=== PATIENT | male | born 1935 | race Caucasian/White ===

== ENCOUNTER 2017-03-29 16:05 | Inpatient (IN) | payer MEDICARE, OTHER ==
[~2017-03-29] VITALS: Ht 171.4 cm; Wt 107.1 kg
[2017-03-29] VITALS (10 sets, daily range): BP systolic 163–247; BP diastolic 66–98; PULSE 61–75; RESP 16–20; O2SAT 95–98
--- NOTE | 2017-03-29 16:14 | ED.REPORT ---
HPI-Stroke / CVA Mar 29, 2017 ED Provider: Dr. Abrams Pt is a generally healthy 81 y/o male w/ a hx of HLD, presenting to the ED with his c/o aphasia onset 15:00. The patient was with his watching TV and suddenly developed aphasia described as word finding difficulties. His aphasia has been constant since onset. Pt denies focal weakness/numbness, seizure-like activity, problem walking, SHELTON. There has been no recent major surgeries, head trauma, or falls. The patient had a similar episode in August in [place] at which time he had a full stroke workup and his symptoms were thought to be caused by a TIA. He was discharged on more aspirin and no anticoagulation or antiplatelet drugs. Yesterday he did do more activities than normal. He was recently started on a new statin 1 week ago. Nursing Notes Stated Complaint: STROKE LIKE SYMPTOMS Chief Complaint: Neuro Symptoms/ Deficits Nursing Notes Reviewed: Yes Allergies: Coded Allergies: No Known Drug Allergies (Verified Allergy, Unknown, 03/29/17) Scheduled Aspirin (Aspirin) 81 Mg Tablet 162 MG PO HS (Reported) Atenolol (Atenolol) 50 Mg Tablet 50 MG PO HS (Reported) Cranberry Extract (Cranberry) 500 Mg Tablet 500 MG PO HS (Reported) Finasteride (Finasteride) 5 Mg Tablet 5 MG PO QAM (Reported) Hydrochlorothiazide (Hydrochlorothiazide) 12.5 Mg Tablet 12.5 MG PO QAM ( Reported) Lisinopril (Lisinopril) 20 Mg Tablet 20 MG PO QAM (Reported) Naproxen Sodium (Naproxen Sodium) 220 Mg Capsule 220 MG PO BIDWM (Reported) Pumpkin Seed Extract/Soy Germ (Azo Bladder Control Capsule) 300 Mg Capsule 300 MG PO HS (Reported) Rosuvastatin Calcium (Rosuvastatin Calcium) 10 Mg Tablet 10 MG PO HS (Reported) Saw [place] (Saw Miami) 160 Mg Capsule 320 MG PO HS (Reported) Tamsulosin (Flomax) 0.4 Mg Capsule 0.8 MG PO HS (Reported) General Time Seen by Provider: 16:10 Chief Complaint Other (word finding difficulties) Hx Obtained From: Patient Arrived By: Walk-in Time last known well 15:00 Sudden in Onset?: Yes Symptom Duration: Since onset Progression Since Onset: Constant Severity: Current: No pain currently Severity: Maximum: No pain Recent Healthcare: Previous diagnosis, Prior workup Similar Sx Previous: Yes Risk Factors )( TPA Administration/Criteria Stroke Thrombolytic Therapy : TPA Considered: Yes TPA Administered Intravenously: No, not indicated NIH Stroke Scale Level of Consciousness: Alert and responsive (0) Ask Month & Age: Both questions right (0) Open/Close Eyes/Hand Financial Market Dealer: Performs both tasks (0) Horizontal EO Movements: None (0) Visual Rosen: No visual loss (0) Facial Palsy: Normal symmetry (0) Right Arm Motor Drift (10s): No drift 10 sec (0) Left Arm Motor Drift (10s): No drift 10 sec (0) Right Leg Motor Drift (5s): No drift 5 sec (0) Left Leg Motor Drift (5s): No drift 5 sec (0) Limb Ataxia FNF/Heel-Mcdonald: No ataxia (0) Sensation (Arms/Legs/Face): No sensory loss (0) Language Aphasia: No aphasia, normal (0) Dysarthria: No dysarthria, normal (0) Extinction/Inattention: No exctinct/inattent (0) NIHSS Score: 0 Time NIHSS Performed: 16:22 Date NIHSS Performed: Mar 29, 2017 Past Medical History Past Medical History Hyperlipidemia TIA Past Surgical History None reported Smoking History Unknown if Ever Smoker Social History Other Social History: Ambulatory Status Independent Review of Systems Neurologic: Reports: Slurred speech (word finding difficulties), Denies: Focal weakness, Headache, Problem walking, Seizure, Shaking Complete sys rev & neg: except as marked. Physical Exam Initial Vital Signs Vital Signs (First) Date Time Temp Pulse Resp B/P Pulse Ox O2 Delivery O2 Flow Rate FiO2 03/29/17 16:14 64 20 207/83 95 Room Air Initial VS: Reviewed, Vital signs abnormal ENT: Mucous membranes moist, Conjunctiva normal, No scleral icterus Abdomen / GI: Soft, Non-tender, No guarding, No rebound, No distention Extremities: Vascular intact, Neuro intact, No swelling Skin: Warm, Dry, No cyanosis Psychiatric: Mood/affect normal, Behavior normal, Normal thought content General/Constitutional: Awake, Alert, No acute distress, Well appearing, Cooperative, Not toxic appearing Head / Eyes: Atraumatic, Normocephalic, PERRL, EOMI Neck: Atraumatic, Supple, No meningismus, Full range of motion Respiratory / Chest: Breath sounds NL, Breath sounds = bilat, No respiratory distress, No rales, No rhonchi, No wheezing, No retractions, No stridor Cardiovascular: Heart rate NL, Regular rhythm, Heart sounds NL, No gallop, No murmurs, No rubs, Cap refill not delayed, Peripheral circulation NL Neurologic: Oriented X3, Speech NL, No motor deficits, No sensory deficits, CN II - XII intact, Cerebellar NL, Memory NL No facial droop No word finding difficulty or slurred speech at this time Strength 5/5 bilateral upper and lower extremities No pronator drift Finger to nose normal bilaterally Heel to mcdonald normal bilaterally Interpretation & Diagnostics Lab Results Interpretation Result Diagram: 03/29/17 1630 03/29/17 1630 Test 03/29/17 16:30 03/29/17 16:31 03/29/17 18:59 White Blood Count 7.6th/mm3 (3.8-10.1) Red Blood Count 5.00mil/mm3 (4.40-5.80) Hemoglobin 15.4g/dL (13.8-17.2) Hematocrit 45.4% (41.0-50.0) Mean Corpuscular Volume 90.8fL (81-100) Mean Corpuscular Hemoglobin 30.8pg (27.0-35.0) Mean Corpuscular Hemoglobin Concent 33.9% (32.0-37.0) Red Cell Distribution Width 13.5% (12.3-15.4) Platelet Count 158bil/L (150-400) Neutrophils (%) (Auto) 65.7% (40-74) Lymphocytes (%) (Auto) 21.5% (14-46) Monocytes (%) (Auto) 10.8% (4-12) Eosinophils (%) (Auto) 1.6% (0-5) Basophils (%) (Auto) 0.3% (0-3) Prothrombin Time 10.1sec (8.1-12.5) Prothromb Time International Ratio 0.95ratio Sodium Level 142mEq/L (134-144) Potassium Level 4.0mEq/L (3.5-5.2) Chloride Level 104mEq/L (97-108) Carbon Dioxide Level 22mmol/L (18-29) Blood Urea Nitrogen 24mg/dL (8-27) Creatinine 0.59mg/dL (0.76-1.27) Estimat Glomerular Filtration Rate 140mL/min (>59) Glucose Level 93mg/dL (60-99) Calcium Level 9.1mg/dL (8.5-10.1) Magnesium Level 2.1mg/dL (1.6-2.6) Total Bilirubin 0.5mg/dL (0.0-1.2) Aspartate Amino Transf (AST/SGOT) 16U/L (0-50) Alanine Aminotransferase (ALT/SGPT) 15U/L (0-44) Alkaline Phosphatase 104U/L (25-160) Troponin T < 0.010ug/L (0.0-0.011) Total Protein 6.8g/dL (6.4-8.4) Albumin 4.3g/dL (3.4-5.0) Triglycerides Level 198mg/dL (0-149) Cholesterol Level 153mg/dL (100-199) LDL Cholesterol, Calculated 66.400mg/dL (0-99) VLDL Cholesterol 39.600mg/dL HDL Cholesterol 47mg/dL (>39) Cholesterol/HDL Ratio 3.26 (0.0-4.4) Hold Viveros Top Tube Received (Received) Urine Color Yellow (YELLOW) Urine Appearance Clear (CLEAR,HAZY) Urine pH 7.5 (5.0-8.0) Urine Specific [place] 1.015 (1.003-1.035) Urine Protein Negativemg/dL (NEG,TRACE) Urine Glucose (UA) Negativemg/dL (NEGATIVE) Urine Ketones Negativemg/dL (NEGATIVE) Urine Occult Blood Negative (NEGATIVE) Urine Nitrite Negative (NEGATIVE) Urine Bilirubin Negative (NEGATIVE) Urine Urobilinogen Normalmg/dL (NORMAL) Urine Leukocyte Esterase Trace (NEGATIVE) Urine RBC 0-2/hpf (0-2) Urine WBC 0-5/hpf (0-5) Urine Epithelial Cells Few/hpf (NONE-MOD) Urine Crystals None seen (NONE SEEN) Urine Bacteria Few/hpf (NONE-FEW) Urine Hyaline Casts None/lpf (NONE) Urine Granular Casts None seen (NONE SEEN) Urine Waxy Casts None seen (NONE SEEN) Urine Red Blood Cell Casts None seen (NONE SEEN) Urine White Blood Cell Casts None seen (NONE SEEN) Urine Mucus None seen (None Seen) Urine Trichomonas None seen (NONE SEEN) Urine Yeast None (NONE SEEN) Urinalysis Comment Amorphous sediment Urine Culture Reflexed Indicated ECG Interpretation ECG Interpretation: Sinus rhythm rate [address] segment elevation No T wave abnormalities No prior available for comparison Time: 16:30 Interpreted by: ED physician X-Ray Chest Interpretation Chest Xray Interpretation: IMPRESSION: No acute cardiopulmonary abnormality Dictated by: Fredi Georges M.D. on 03/29/2017 at 16:43 Approved by: Fredi Georges M.D. on 03/29/2017 at 16:44 View: Portable, 1 view Interpretation / Wet Read by: Interpret - Radiologist CT Head Interpretation IMPRESSION: 1. No intracranial hemorrhage. No secondary signs of ischemic infarct. Report called to Dr. Abrams in the ED This study fulfills neurological imaging criteria for inclusion or exclusion of acute stroke therapies based on available published neurological guidelines. Dictated by: Fredi Georges M.D. on 03/29/2017 at 16:37 Approved by: Fredi Georges M.D. on 03/29/2017 at 16:40 Study: Head CT no contrast Interpretation / Wet Read by: Interpret - Radiologist, Discussed w radiologist Re-Eval/Medical Decision Med Decision/Clinical Course Pt is a generally healthy 81 y/o male w/ a hx of HLD, presenting to the ED with his c/o aphasia onset 15:00. The patient was with his watching TV and suddenly developed aphasia described as word finding difficulties. His aphasia has been constant since onset. Pt denies focal weakness/numbness, seizure-like activity, problem walking, SHELTON. There has been no recent major surgeries, head trauma, or falls. The patient had a similar episode in August in [place] at which time he had a full stroke workup and his symptoms were thought to be caused by a TIA. He was discharged on more aspirin and no anticoagulation or antiplatelet drugs. Bedside glucose: 89 Upon arrival in emergency department the patient is afebrile, hemodynamically stable in no apparent distress. Stroke protocol was initiated and he was immediately taken for CT scan. I evaluated the patient immediately on his return from CT scan and by that point his symptoms had completely resolved. His is at the bedside and was able to confirm that he was at his neurologic baseline. He was speaking fluently in full sentences with no lateralizing neurologic findings. CXR: Obtained, reviewed and interpreted by myself shows no evidence of infiltrates, effusions or pneumothorax. Cardiac and mediastinal silhouette normal. No bony or soft tissue abnormalities. Head CT: No acute intracranial process EKG: Sinus rhythm rate [address] segment elevation No T wave abnormalities No prior available for comparison Labs notable as below: CBC: Unremarkable CMP: Unremarkable Coag studies: normal Systolic BP of 239 at 17:30 - given IV Labetalol Thereafter the patient was noted to have ongoing severe hypertension with a blood pressure in the 240s systolic despite receiving IV labetalol. He reported moderate headache though serial neurologic assessments remained nonfocal. Given his severe hypertension he was started on a nicardipine infusion with improvement in his blood pressure to the 170s systolic. The patient was initially considered to be a TPA candidate however he had rapid resolution of his neurologic deficits thereby making him not a TPA candidate. I feel that at this time the patient warrants admission for further stroke/TIA workup and risk stratification. Moreover, his presentation of transient neurologic deficits and headache in the setting of severe hypertension warrants aggressive management of hypertensive emergency. He is currently stable on nicardipine infusion and has been discussed with the admitting hospitalist. He was sent to the intensive care unit for further management. Source of Hx: Family Re-Evaluation/Progress : Time of Eval: 16:24 )( Re-Eval Neurologic Exam: Pt is back to baseline Re-Evaluation/Progress Note: Pt rechecked. Informed pt of need for admission. Pt understands and agrees with plan for admission. All questions addressed. agrees as well. Consultation : Referral / Consult Name: HEDY LUND DO Consulted With: Hospitalist Call Returned at: 17:46 Machine Plug Shaper: Will see patient, Agrees with eval, Agrees with plan, Accepts admit Counseled Regarding: Diagnosis, Lab results, Need for admission Patient Discharge & Departure Impression: Primary Impression: TIA (transient ischemic attack) Transient cerebral ischemia type: unspecified Qualified Code: G45.9 - Transient cerebral ischemic attack, unspecified Additional Impressions: Hypertensive emergency Headache Headache type: unspecified Headache chronicity pattern: unspecified pattern Intractability: not intractable Qualified Code: R51 - Headache Slurred speech History of TIA (transient ischemic attack) Disposition: ADMITTED TO HOSPITAL Discharge Condition All VS Reviewed: Yes Condition: Stable Crit Care Except Billable Proc Time Spent: 105-134 minutes Services Performed: Patient management by me, Time spent at bedside, Reviewing test results, Reviewing imaging, Discussing patient care, Documentation in record, Time with fam/surrogate Critical Care Notes: 90 minutes for consideration of tPA and severe hypertension/hypertensive emergency Scribe Attestation Portions of this note were transcribed by González Garcia. I, Dr. Abrams personally performed the history, physical exam and medical decision-making; I reviewed and confirmed the accuracy of the information in the transcribed note. Akhil Abrams MD Mar 29, 2017 16:13 GONZÁLEZ GARCIA Mar 29, 2017 16:16
[2017-03-29] MEDS ORDERED: Alum-Mag Hydrox-Simeth 30 mL Suspension PO PRN ×2 (16:30→17:15)
[2017-03-29] MEDS ORDERED: Ondansetron 2 mg/mL 2 mL Inj IVPUSH PRN ×3 (16:30→18:05)
[2017-03-29 16:33] LABS: BASOPHILS % (AUTO) 0.3 % (0-3); EOSINOPHILS % (AUTO) 1.6 % (0-5); MONOCYTES % (AUTO) 10.8 % (4-12); Mean Corpuscular Hemoglobin 30.8 pg (27.0-35.0); Mean Corpuscular Volume 90.8 fL (81-100); NEUTROPHILS % (AUTO) 65.7 % (40-74); Platelet Count 158 bil/L (150-400)
--- NOTE | 2017-03-29 16:42 | DRSVH ---
PROCEDURE: CT BRAIN TPA INDICATIONS: cva r/o TECHNIQUE: Noncontrast 4.5 mm thick angled axial sections acquired from the foramen magnum to the vertex, with c oronal reformats. COMPARISON: None. FINDINGS: Image quality: Artifact over the convexities on initial imaging, focal area repeated CSF spaces: Basal cisterns are patent. No extra-axial fluid collections. The ventricles are symmet nate in size and shape. Brain: No intracranial bleeds or masses. There is cerebral volume loss for age, with resultant vent ricular and sulcal prominence. There are periventricular and deep white matter chronic small vessel ischemic changes. There is intracranial internal carotid artery atherosclerosis. Skull and face: Calvarium and visualized facial bones appear intact, without suspicious lesions. Sinuses: Visualized sinuses and mastoids are clear. IMPRESSION: 1. No intracranial hemorrhage. No secondary signs of ischemic infarct. Report called to Dr. Abrams in the ED This study fulfills neurological imaging criteria for inclusion or exclusion of acute stroke therapie s based on available published neurological guidelines. Dictated by: Fredi Georges M.D. on 03/29/2017 at 16:37 Approved by: Fredi Georges M.D. on 03/29/2017 at 16:40
--- NOTE | 2017-03-29 16:45 | DRSVH ---
PROCEDURE: X-RAY CHEST ONE VIEW, PORTABLE ([id number]) INDICATIONS: SHORT OF BREATH TECHNIQUE: One view of the chest was acquired. COMPARISON: None. FINDINGS: Surgical changes and devices: None. Lungs and pleura: No pleural effusions or pneumothorax. Lungs are clear. Biapical pleural thickenin g. Mediastinum: Mediastinal contours appear normal. Heart size is borderline enlarged. Bones and chest wall: No suspicious bony lesions. Overlying soft tissues appear unremarkable. IMPRESSION: No acute cardiopulmonary abnormality Dictated by: Fredi Georges M.D. on 03/29/2017 at 16:43 Approved by: Fredi Georges M.D. on 03/29/2017 at 16:44
[2017-03-29 17:02] LABS: INR 0.95 ratio
[2017-03-29 17:05] LABS: TROPONIN T < 0.010 ug/L (0.0-0.011)
[2017-03-29 17:13] LABS: Magnesium 2.1 mg/dL (1.6-2.6)
[2017-03-29] MEDS ORDERED: Labetalol 5 mg/mL 20 mL Inj IVPUSH PRN (17:15)
[2017-03-29] MEDS ORDERED: hydrALAZINE 20 mg/mL Inj IVPUSH PRN (17:15)
[2017-03-29] MEDS ORDERED: Labetalol 5 mg/mL 20 mL Inj IVPUSH ONE (17:30)
[2017-03-29] MEDS ORDERED: Senna-Docusate 8.6-50 mg Tablet PO PRN (18:05)
[2017-03-29] MEDS: NiCARdipine 25 mg/250 mL D5W IV SCH ×4 (18:10→23:41)
[2017-03-29] MEDS ORDERED: SAW160CA2 PO (18:22)
[2017-03-29] MEDS ORDERED: ROSU10TA24 PO (18:22)
[2017-03-29] MEDS ORDERED: HYDR12.55 PO (18:22)
[2017-03-29] MEDS ORDERED: ASPI-973 PO (18:22)
[2017-03-29] MEDS ORDERED: TAMS0.4C98 PO (18:22)
[2017-03-29] MEDS ORDERED: NAPR220C16 PO (18:22)
[2017-03-29] MEDS ORDERED: FINA5TAB9 PO (18:22)
[2017-03-29] MEDS ORDERED: LISI-567 PO (18:22)
[2017-03-29] MEDS ORDERED: ATEN50TA PO (18:22)
[2017-03-29] MEDS ORDERED: PUMP300C PO (18:23)
[2017-03-29] MEDS ORDERED: CRAN500T2 PO (18:23)
[2017-03-29 19:20] LABS: APPEARANCE,URINE CLEAR (CLEAR,HAZY); COLOR,URINE YELLOW (YELLOW); OCCULT BLOOD,URINE NEGATIVE (NEGATIVE); PH,URINE 7.5 (5.0-8.0); UROBILINOGEN,URINE NORMAL (NORMAL)
--- NOTE | 2017-03-29 21:17 | PCM.HPMED ---
Subjective Date of Service Mar 29, 2017 Primary Provider: Admitting Physician: Primary Care Physician: Attending Physician: Admit Status: From the Emergency Department, Admit to [facility] Team Chief Complaint: Hypertensive emergency History of Present Illness: Mr. Maria is a 81-year-old male with past medical history of hyperlipidemia and TIA who presented to the emergency department in care of his secondary to a aphasia onset this afternoon while watching TV. Patient and states that he was watching TV when he suddenly developed inability to formulate thoughts and coherent sentences. He was reported to have asked his to order things from the TV menu and was slurring his speech. He reports that he thought that he knew what he wanted to say but was unable to find the appropriate words to articulate this. This aphasia has resolved itself by time of interview though did not last for approximately 2-3 hours. She was accompanied with a headache which developed while in route to the emergency room and persist during time of interview (though was somewhat relieved with nicardipine drip). Of note patient had a similar episode in August of this year in [place] with presenting aphasia and had a full stroke workup was diagnosed with a TIA. He was discharged on double dose of aspirin without additional anticoagulation. Since then he has been followed by his primary care Dr. Quintero and has recently increased patient's dose of lisinopril with accompanying atenolol. Stopped hydrochlorothiazide.Discontinued simvastatin and started Crestor. While interviewing patient in ED room blood pressure donna from 212 to approximately 250 systolic which patient states has never been close to that high in the past. Nicardipine drip started in the ED after blood pressure was unable to be controlled with labetalol and patient upgraded from observation to CCU status secondary to high risk medication drip. At time of interview he is completely asymptomatic reports no chest pain, shortness of breath, visual changes, dizziness, abdominal pain or numbness or tingling in extremities. Denies fevers chills nausea vomiting. Patient admitted secondary to TIA/CVA stroke protocol workup. NIH stroke scale in ED 0. Review of Systems: A comprehensive review of systems was conducted with the patient and found to be negative except as above in the history of present illness. Allergies Coded Allergies: No Known Drug Allergies (Verified Allergy, Unknown, 03/29/17) Home Medications Home medications per med rec: Aspirin Atenolol Cranberry extract Finasteride Hydrocort thiazide Lisinopril Naproxen sodium Pumpkin seed extract Rosuvastatin Saw paola Terazosin PMH Hyperlipidemia TIA Hypertension Surgical History Denies Family History Mother passed from heart attack Social History Hx Alcohol Use: No Hx Substance Use: No Hx Tobacco Use: Yes Smoking Status: Unknown if Ever Smoker Living Arrangement: with Family Exam Vital Signs Vital Sign - Last Date Time Temp Pulse Resp B/P Pulse Ox O2 Delivery O2 Flow Rate FiO2 03/29/17 16:44 62 16 211/68 98 Room Air Exam General: Awake and alert sitting up in hospital bed in no acute distress, well- developed, well-nourished, appropriately interactive HEENT: Normocephalic, atraumatic. External ears without defect. Pupils equal, round, and reactive to light and accommodation. Extraocular movements intact Anicteric sclerae, moist conjunctivae, and no lid lag. Oropharynx free of erythema and cobble stoning with moist mucosa. Neck: Supple with full range of motion. No jugular venous distension. No bruits. Cardiovascular: Regular rate and rhythm systolic murmur appreciated Pulmonary: Clear to auscultation bilaterally with no crackles, wheezes, or rhonchi. Normal respiratory effort with no use of accessory muscles. Abdomen: Obese abdomen Bowel tones present. Soft, nontender, nondistended. Extremities: No clubbing, cyanosis, edema, or lymphadenopathy appreciated. Skin: Normal temperature, turgor, and texture Neurological: Cranial nerves grossly intact. Normal muscle strength, tone, and bulk. Reflexes, coordination, and sensory function within normal limits. No pronator drift, strength 5 out of 5 bilaterally upper and lower extremities. Psychiatric: Normal mood and affect. Alert and oriented to person, place, and time. No difficulty speaking, no slurred speech Lab and Diagnostics Result Diagram: 03/29/17 1630 X-Rays, CTs and MRIs . CT BRAIN TPA IMPRESSION: 1. No intracranial hemorrhage. No secondary signs of ischemic infarct. This study fulfills neurological imaging criteria for inclusion or exclusion of acute stroke therapies based on available published neurological guidelines. Dictated by: Fredi Georges M.D. on 03/29/2017 X-RAY CHEST ONE VIEW, PORTABLE IMPRESSION: No acute cardiopulmonary abnormality Dictated by: Fredi Georges M.D. on 03/29/2017 Additional Diagnostics: NIH stroke scale Level of Consciousness: Alert and responsive (0) Ask Month & Age: Both questions right (0) Open/Close Eyes/Hand Box Sorter: Performs both tasks (0) Horizontal EO Movements: None (0) Visual Rosen: No visual loss (0) Facial Palsy: Normal symmetry (0) Right Arm Motor Drift (10s): No drift 10 sec (0) Left Arm Motor Drift (10s): No drift 10 sec (0) Right Leg Motor Drift (5s): No drift 5 sec (0) Left Leg Motor Drift (5s): No drift 5 sec (0) Limb Ataxia FNF/Heel-Mcdonald: No ataxia (0) Sensation (Arms/Legs/Face): No sensory loss (0) Language Aphasia: No aphasia, normal (0) Dysarthria: No dysarthria, normal (0) Extinction/Inattention: No exctinct/inattent (0) NIHSS Score: 0 Assessment & Plan Mr. Maria is a 81-year-old male with past medical history of hyperlipidemia, hypertension and TIA admitted secondary to hypertensive emergency status post suspected TIA. Hypertensive emergency. Present on admission. Ongoing Blood pressure refractory to labetalol demonstration and ED nicardipine drip initiated -Continue nicardipine drip, we will attempt to wean this and replace with lisinopril and atenolol -Telemetry -Continue to monitor TIA. Present on admission. Resolved -Patient asymptomatic at time of interview -MR stroke protocol ordered for a.m. Hyperlipidemia. Present on admission. Ongoing -Statin BPH. Present on admission. Ongoing -Continue home meds Patient Status: Patient was admitted under inpatient status with expected length of stay greater than two midnights due to severity of presenting symptoms , risk of adverse event, and complexity of treatment plan. CODE STATUS patient wishes to remain full code Pain Evaluation: Adequate Pain Control GI Prophylaxis: H2 nick VTE Prophylaxis: Sub-Q Heparin (Unfractionated) Resuscitation Status: CPR: Attempt Resuscitation Time spent 60 minutes Attending Statement Patient (Mr Maria) seen and examined with Dr Alonzo, agree with assessment and plan detailing clinical care. I was involved in all aspects of the care , exam and care plan. He will be treated with a nicardipine drip tonight and antiplatelet therapy as well as close neurologic follow up. HEDY ALONZO DO Mar 29, 2017 17:13 Jose Parson MD Mar 30, 2017 15:32
[2017-03-30] VITALS (10 sets, daily range): BP systolic 146–168; BP diastolic 58–84; PULSE 52–66; RESP 16–18; O2SAT 94–98
[2017-03-30] MEDS: Heparin 5,000 Unit/mL Inj SUBQ SCH ×3 (01:27→16:41)
[2017-03-30] MEDS: NiCARdipine 25 mg/250 mL D5W IV SCH ×12 (03:55→20:33)
[2017-03-30 04:29] LABS: BASOPHILS % (AUTO) 0.3 % (0-3); EOSINOPHILS % (AUTO) 1.4 % (0-5); Mean Corpuscular Hemoglobin 30.5 pg (27.0-35.0); NEUTROPHILS % (AUTO) 67.9 % (40-74); Platelet Count 145 bil/L (150-400)
[2017-03-30] MEDS ORDERED: LORazepam 1 mg Tablet PO PRN (07:00)
[2017-03-30] MEDS ORDERED: Ketorolac 15 mg/mL Inj IVPUSH ONE (11:30)
--- NOTE | 2017-03-30 17:57 | PCM.PNMED ---
Subjective Date of Service Mar 30, 2017 Subjective No overnight event. Vitals stable. This morning however, patient developed sudden expressive aphasia. As team evaluate patient however, symptoms quickly resolved. Event lasted <5min. were no other neurological deficit. Vitals at the time were temperature 36.5, pulse 61, RR 16, BP 160/65, saturating well at 98%. Attempted MR a stroke protocol after pre-medicating patient with 1 mg of Ativan without success. Pt claustrophobic, refuse testing. Patient noted to have similar symptoms in the past, 08/28/2016 down in [place]. At the time MR stroke protocol was also initiated, impression without any acute ischemic infarction. An echocardiogram done at that time also unremarkable, estimated EF of 70-75% with normal ventricular systolic function. On diastolic evaluation, patient has mild concentric LV hypertrophy and impaired relaxation grade 1 diastolic dysfunction. Exam Vital Signs Vital Sign - Last Date Time Temp Pulse Resp B/P Pulse Ox O2 Delivery O2 Flow Rate FiO2 03/30/17 16:44 36.6 59 16 164/84 96 Room Air Exam General: No acute distress, appropriately interactive HEENT: Normocephalic, atraumatic. PERRLA, EOMI, Anicteric sclerae, moist conjunctivae. Neck: No JVD, No bruits. No lymphadenopathy or thyromegaly. Cardiovascular: Regular rate and rhythm with no murmurs, rubs, or gallops appreciated Pulmonary: b/l air sound with no crackles, wheezes, or rhonchi. no use of accessory muscles. Abdomen: +Bowel sound, Soft, nontender, nondistended. Extremities: No clubbing or cyanosis, no lymphedema, no b/l lower leg edema Skin: Normal temperature, turgor, and texture; no rash. No visualized skin ulcer. Neurological: CN II-VII grossly intact, moving equally on all 4 extremities Psychiatric: Normal mood and affect. AOx3 Lab and Diagnostics Result Diagram: 03/30/1741903/30/17419 X-Rays, CTs and MRIs . CT BRAIN TPA IMPRESSION: 1. No intracranial hemorrhage. No secondary signs of ischemic infarct. This study fulfills neurological imaging criteria for inclusion or exclusion of acute stroke therapies based on available published neurological guidelines. Dictated by: Fredi Georges M.D. on 03/29/2017 X-RAY CHEST ONE VIEW, PORTABLE IMPRESSION: No acute cardiopulmonary abnormality Dictated by: Fredi Georges M.D. on 03/29/2017 12-lead ECG MR angiography head: Impression no acute ischemic infarct or other acute intracranial abnormality identified 2. Mildly generalized brain volume loss and small scattered foci of signal abnormality in the cerebral white matter, most consistent with chronic small vessel ischemic changes. 3. Arthrosclerotic irregularities in the intracranial internal carotid arteries , right middle cerebral arteries, and bilateral posterior cerebella arteries are normal in caliber, normal occlusion, or significant stenosis. 4. The may be moderate narrowing of the cervical left ICA, just distal to the carotid bulb. Otherwise normal MR angiography of the neck. Reading Dr.: Scar Bearden. 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 Maria is a 81-year-old male with past medical history of hyperlipidemia, hypertension and TIA admitted secondary to hypertensive emergency status post suspected TIA. Hypertensive emergency. Present on admission. Ongoing -Blood pressure refractory to labetalol demonstration and ED nicardipine drip initiated -Cont home lisinopril and atenolol. d/c nicardipine drip -Telemetry. SBP 130-140 mmhg -Continue to monitor TIA. Present on admission. Resolved -Patient asymptomatic at time of interview -no carotid stenosis on MRA and echocardiogram showing normal LV function, EF 70 -75% with mild concentric hypertrophy impared relaxation (Diastolic Grade I) -given the isolated nature of expressive aphagia without any other focal findings. less likely embolic stroke -awaits Echo reading. holding off MRA for now. -consider neurology consultation in the am Hyperlipidemia. Present on admission. Ongoing -Statin BPH. Present on admission. Ongoing -Continue home meds Patient Status: Patient was admitted under inpatient status with expected length of stay greater than two midnights due to severity of presenting symptoms , risk of adverse event, and complexity of treatment plan. Disposition: GI Prophylaxis: H2 nick VTE Prophylaxis: Sub-Q Heparin (Unfractionated) VTE Mechanical Devices: Intermittant Pneumatic CD Resuscitation Status: CPR: Attempt Resuscitation Attending Statement I interviewed and examined the patient on rounds today. Patient was seen subsequently for acute symptoms. Unable to tolerate full workup. Symptoms seem to be recurrent and similar to prior workup in [place]. I agree with the assessment and plan as stated above. Jose Jaramillo DO Mar 30, 2017 17:57 Nii Byrd MD Mar 31, 2017 07:12 Hyperlipidemia. Present on admission. Ongoing -Statin BPH. Present on admission. Ongoing -Continue home meds Patient Status: Patient was admitted under inpatient status with expected length of stay greater than two midnights due to severity of presenting symptoms , risk of adverse event, and complexity of treatment plan. Disposition: GI Prophylaxis: H2 nick VTE Prophylaxis: Sub-Q Heparin (Unfractionated) VTE Mechanical Devices: Intermittant Pneumatic CD Resuscitation Status: CPR: Attempt Resuscitation Jose Jaramillo DO Mar 30, 2017 17:57
[2017-03-31] VITALS (8 sets, daily range): BP systolic 132–213; BP diastolic 63–81; PULSE 50–67; RESP 16–20; O2SAT 95–96
[2017-03-31] MEDS: Heparin 5,000 Unit/mL Inj SUBQ SCH ×3 (01:52→17:15)
[2017-03-31] MEDS: NiCARdipine 25 mg/250 mL D5W IV SCH ×2 (03:28)
[2017-03-31] MEDS ORDERED: ASPI-973 PO (10:38)
[2017-03-31] MEDS ORDERED: CLOP75TA28 PO (10:38)
[2017-03-31] MEDS ORDERED: HYDR12.55 PO (10:40)
--- NOTE | 2017-03-31 10:57 | PCM.DIMED ---
Discharge Instructions Date of Service Mar 31, 2017 Dates of Hospitalization Mar 29, 2017 at 19:15 Discharge Diagnosis Discharge Diagnosis Hypertensive emergency. Present on admission. resolved TIA. Present on admission. Resolved Hyperlipidemia. Present on admission. Ongoing BPH. Present on admission. Ongoing Medication Instructions Additional med instructions We are giving her 2 medications to help with your TIA. Take Plavix 75 mg 1 tablet daily. You need to take this medication for 3 months. Take aspirin 162 mg qd For your hypertension: Take atenolol 50 mg daily Take lisinopril 20 mg daily Additionally, take hydrochlorothiazide 12.5 mg daily I have renewed these medications for 1 month. You will need to visit your PCP to continue these medication medication. Continue with all other home medication Diet Discharge Diet: No restrictions Activity Discharge Activity: No restrictions Call your provider Call your provider for: Bleeding, Chest pain, Weakness (unilateral) Patient Instructions Follow-up plan You were admitted for hypertensive emergency. This is means that you have dangerously high blood pressure with signs of organ damage, mainly your headaches and also the word searching, word salad. This was pressure has come down significantly with improvement of her symptoms. Workup on this exam included an echocardiogram which was unremarkable. Interpretation summary of your echocardiogram on 03/30/2017 The left ventricle is normal in size. Left ventricular systolic function is normal without focal wall motion abnormalities. Ejection fraction is estimated to be 60-65%. Diastolic function could not be accurately assessed due to contradictory data. The right ventricle is normal in size, thickness, and function. The right the right ventricular systolic pressure is estimated at 31 mmHg assuming a right atrial pressure of 3 mmHg. The left atrium is moderately dilated. The right atrium is normal in size. There are no significant valvular heart disease. The aortic root is mildly dilated. There is no obvious cardiac sources of embolus noted on this transthoracic echocardiogram. Follow-up with a [facility] is suggested if cardiac source is still suspected. Read by Dr. Felipe Wright. Prevention is cisse. 2 blood thinner medication has been prescribed to you. Aspirin and Plavix. Please take this daily without fail. Additionally, please take atenolol, lisinopril, and hydrochlorothiazide as prescribed above to control your hypertension. Please call your primary care provider to schedule a hospital follow-up exam within 1 week. It is also recommended that you see a neurologist to further assess your probable TIA. Call 911 for any of the following: You have any of the following signs of a stroke: Numbness or drooping on one side of your face Weakness in an arm or leg Confusion or difficulty speaking Dizziness, a severe headache, or vision loss Seek care immediately if: You have double vision or vision loss. You have a severe headache or feel dizzy. You are bleeding from your rectum or nose. Contact your healthcare provider or neurologist if: Your blood pressure is higher or lower than you were told it should be. You have questions or concerns about your condition or care. Medicines: Antiplatelets prevent blood clots from forming. Aspirin is an antiplatelet. Do not take aspirin with acetaminophen or ibuprofen. Call you PCP should you have nosebleed or black tarry stools. Know the FAST test to recognize the signs of a stroke: F = Face: Ask the person to smile. Drooping on 1 side of the mouth or face is a sign of a stroke. A = Arms: Ask the person to raise both arms. One arm that slowly comes back down or cannot be raised is a sign of a stroke. S = Speech: Ask the person to repeat a simple sentence that you say first. Speech that is slurred or sounds strange is a sign of a stroke. T = Time: Call 911 if you see any of these signs. This is an emergency. Follow-up with PCP in: 1 week Jose Jaramillo DO Mar 31, 2017 10:57
--- NOTE | 2017-03-31 11:33 | DRSVH ---
[facility] [address] [place] [address] Echocardiogram Report Name: PARESH OLIVEROS GStudy Date : 03/30/2017 Height: 68 in Hospital Exam Location: [facility] Weight: 239 lb Gender: Male BSA: 2.2 m2 : 1935 Age: 81 yrs BP: 166/68 mmHg Reason For Study: TIA Ordering Physician: HOSPITALIST [facility] Performed By: Mica Willams Referring Physician: HEDY LUND Interpretation Summary The left ventricle is normal in size. Left ventricular systolic function is normal without focal wall motion abnormalities. The ejection fraction is estimated to be 60-65%. Diastolic function could not be accurately assessed due to contradictory data. The right ventricle is normal in size, thickness and function. The right ventricular systolic pressure is estimated at 31 mmHg assuming a right atrial pressure of 3 mm Hg. The left atrium is moderately dilated. The right atrium is normal in size. There is no significant valvular heart disease. The aortic root is mildly dilated. There is no obvious cardiac source of embolus noted on this transthoracic echocardiogram. Follow-up with a [facility] is suggested if cardiac source is still suspected. Procedure: A two-dimensional transthoracic echocardiogram with color flow and Doppler was performed. The study quality was technically adequate. There is no prior echocardiogram noted for this patient. The patient was in normal sinus rhythm during the exam. Left Ventricle: The left ventricle is normal in size. There is mild asymmetric left ventricular hypertrophy. Left ventricular systolic function is normal without focal wall motion abnormalities. The ejection fraction is estimated to be 60-65%. Diastolic function could not be accurately assessed due to contradictory data. Right Ventricle: The right ventricle is normal in size, thickness and function. Atria: The left atrium is moderately dilated. The right atrium is normal in size. There is no Doppler evidence for an interatrial shunt. Mitral Valve: The mitral valve leaflets appear thickened, but open well. There is mild mitral annular calcification. There is trace mitral regurgitation. Aortic Valve: The aortic valve is trileaflet. The aortic valve opens well. The aortic valve is moderately calcified. No aortic regurgitation is present. Tricuspid Valve: The tricuspid valve is normal in structure and function. There is trace tricuspid regurgitation. The right ventricular systolic pressure is estimated at 31 mmHg assuming a right atrial pressure of 3 mm Hg. Pulmonic Valve: The pulmonic valve is not well seen, but is grossly normal. There is trace pulmonic regurgitation. There is no significant valvular heart disease. Great Vessels: The aortic root is mildly dilated. The ascending aorta is normal in size. The pulmonary artery is normal size. The IVC is of normal diameter and collapses greater than 50% with a sniff. This suggests a low right atrial pressure of 3 mm Hg. Pericardium/ Pleura There is no pericardial effusion. There is no pleural effusion. MMode/2D Measurements & Calculations LVIDd: 4.8 cm RA long axis LVOT diam LVIDs: 2.9 cm LA A2 area: 22.9 cm FS: 39.5 % LA A4 area: 29.9 cm RA area AoV Opening EPSS: 0.05 cm LA length (vol): 6.1 cm IVSd: 1.3 cm LA vol: 95.7 ml : 20.2 cm Ao root diam LVPWd: 0.95 cm LA vol index RA vol : 62.7 ml asc Aorta RA Diam: 3.1 cm IVC diam: 1.7 cm : 28.4 mm2 LV heath. diameter/BSA LV sys. diameter/BSA TAPSE: 2.7 cm (cm/m^2): 2.2 (cm/m^2): 1.3 Doppler Measurements & Calculations Ao V2 max MV E max nick MV E/A: 0.67 TR max nick : 165.5 cm/sec : 100.9 cm/sec Med Peak E' Nick : 262.1 cm/sec Ao max PG MV A max nick TR max PG : 11.0 mmHg : 150.2 cm/sec E/E' med: 19.8 : 27.5 mmHg Ao mean PG MV P1/2t: 78.6 msec Lat Peak E' Nick PA V2 max : 6.5 mmHg : 99.5 cm/sec E/E' lat: 21.6 PA mean PG E/e' average: 20.7 : 2.3 mmHg MV dec time MV P1/2t max nick Ao V2 mean PA V2 mean : 0.27 sec : 122.9 cm/sec : 72.7 cm/sec MVA(P1/2t): 2.8 cm2 Ao V2 VTI: 36.8 cm Reading Physician:JIMMY
[2017-03-31] MEDS ORDERED: Enalaprilat 1.25 mg/mL 2 mL Inj IVPUSH ONE (15:00)
--- NOTE | 2017-03-31 15:20 | PCM.PNMED ---
Subjective Date of Service Mar 31, 2017 Subjective Patient without neurological complaints overning, BP stable 150's. This is his baseline per patient and . States headaches has improved since admission. No unilateral weakness, numbness. Pending discharge however, vitals BP 199/73 with transient expressive aphasia last <5min. No other neurological deficits noted. Discharge canceled. Exam Vital Signs Vital Sign - Last Date Time Temp Pulse Resp B/P Pulse Ox O2 Delivery O2 Flow Rate FiO2 03/31/17 13:29 59 199/73 03/31/17 10:51 Room Air 03/31/17 08:47 36.3 16 95 Intake and Output 03/30/17 03/30/17 03/31/17 Cumulative From/Thru 15:01 23:01 07:01 03/29/17 16:14 - 03/31/17 06:25 Intake Total 230 ml 420 ml 650 ml Output Total 1600 ml 1600 ml Balance -1370 ml 420 ml -950 ml Intake Oral 420 ml 420 ml IV Total 230 ml 230 ml Output Urine Total 1600 ml 1600 ml # Voids 1 1 # Bowel Movements 0 1 1 Exam General: No acute distress, appropriately interactive HEENT: Normocephalic, atraumatic. PERRLA, EOMI, Anicteric sclerae, moist conjunctivae. Neck: No JVD, No bruits. No lymphadenopathy or thyromegaly. Cardiovascular: Regular rate and rhythm with no murmurs, rubs, or gallops appreciated Pulmonary: b/l air sound with no crackles, wheezes, or rhonchi. no use of accessory muscles. Abdomen: +Bowel sound, Soft, nontender, nondistended. Extremities: No clubbing or cyanosis, no lymphedema, no b/l lower leg edema Skin: Normal temperature, turgor, and texture; no rash. No visualized skin ulcer. Neurological: CN II-VII grossly intact, moving equally on all 4 extremities, no focal deficits noted Psychiatric: Normal mood and affect. AOx3 Lab and Diagnostics Result Diagram: 03/30/17 0420 03/31/17 0235 X-Rays, CTs and MRIs . CT BRAIN TPA IMPRESSION: 1. No intracranial hemorrhage. No secondary signs of ischemic infarct. This study fulfills neurological imaging criteria for inclusion or exclusion of acute stroke therapies based on available published neurological guidelines. Dictated by: Fredi Georges M.D. on 03/29/2017 X-RAY CHEST ONE VIEW, PORTABLE IMPRESSION: No acute cardiopulmonary abnormality Dictated by: Fredi Georges M.D. on 03/29/2017 12-lead ECG MR angiography head: Impression no acute ischemic infarct or other acute intracranial abnormality identified 2. Mildly generalized brain volume loss and small scattered foci of signal abnormality in the cerebral white matter, most consistent with chronic small vessel ischemic changes. 3. Arthrosclerotic irregularities in the intracranial internal carotid arteries , right middle cerebral arteries, and bilateral posterior cerebella arteries are normal in caliber, normal occlusion, or significant stenosis. 4. The may be moderate narrowing of the cervical left ICA, just distal to the carotid bulb. Otherwise normal MR angiography of the neck. Reading Dr.: Scar Bearden. 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 Maria is a 81-year-old male with past medical history of hyperlipidemia, hypertension and TIA admitted secondary to hypertensive emergency status post suspected TIA. Hypertensive emergency. Present on admission. Ongoing -Initial presentation with headaches and expressive aphasia -nicardipine drip initiated with good effects and d/c after 12h. BP refractory to labetalol in the ED -start patient on metopolol 12.5mg BID, lisinopril 20mg BID augment with HCTz 12.5mg daily -Goal SBP 145-155mmHg till am Expressive aphasia, present on admission, stable -sx lasting <5min, witness by staff 2x, initial CT negative, peculiar, he has no other neurologic findings. Echo unremarkable. patient unable to tolerate MRA -similar presentation back in 08/2016 in [place]. MRA without carotid plaques, unremarkable overall, -possible 2nd to hi BP, although cannot exclude other possibility including small plaques. -Neurology consultation Hyperlipidemia. Present on admission. Ongoing -Statin BPH. Present on admission. Ongoing -Continue home meds Patient Status: Patient was admitted under inpatient status with expected length of stay greater than two midnights due to severity of presenting symptoms , risk of adverse event, and complexity of treatment plan. Disposition: GI Prophylaxis: H2 nick VTE Prophylaxis: Sub-Q Heparin (Unfractionated) VTE Mechanical Devices: Intermittant Pneumatic CD Resuscitation Status: CPR: Attempt Resuscitation Time spent 60 minutes Attending Statement I interviewed and examined the patient on rounds today. He is experiencing recurring episodes of isolated expressive aphasia, as well as episodic severe hypertension. Unclear whether anxiety about his aphasia is causing blood pressure to rise or vice versa. I agree with the assessment and plan as stated above. Jose Jaramillo DO Mar 31, 2017 15:20 Nii Byrd MD Mar 31, 2017 17:32
--- NOTE | 2017-03-31 19:32 | PCM.CHPMED ---
Subjective Date of Service: Mar 31, 2017 Provider requesting consult: Nii Byrd MD Primary Physician: Admitting Physician: Jose Parson MD Primary Care Physician: Lilliana Quintero MD Attending Physician: Nii Byrd MD Chief Complaint: Chief Complaint: NEUROLOGY CONSULTATION Recurrent aphasia. History of Present Illness: Servando Maria is an 81-year-old man with past medical history significant for hypertension and hyperlipidemia with prior diagnosis of TIA who presented to [facility] records department 2 days ago due to an episode of aphasia lasting 5-6 minutes. Neurology consultation is being obtained due to recurrent episodes of aphasia. He states that approximately 25 years ago he had a transient episode of aphasia that lasted about 5 minutes where he had slurring of speech. She had an episode in August where he had again 5-6 minutes of transient aphasia although this was coupled with a tingling sensation over his entire body. This was worked up by an MRA which showed no acute ischemic infarct but did show mild generalized brain volume loss with chronic small vessel ischemic changes as well as atherosclerotic irregularities of the intracranial internal carotid arteries, right middle cerebral artery and bilateral posterior cerebral arteries. He was initiated on aspirin after his first "TIA." On presentation patient was noted to have blood pressure of 241/93 and his symptoms were attributed to hypertensive emergency. His blood pressure was treated however the patient again had 3 recurrent episodes of expressive aphasia lasting 5-6 minutes. Patient denied any tonic-clonic movements, oral, postictal phenomenon. These episodes was witnessed by Dr. Byrd who described slurring of the patient's words that resolved shortly. Review of Systems: Comprehensive review of systems was performed and is negative except as noted above in history of present illness. PMH Past Medical History Hyperlipidemia TIA Hypertension Bedside Blood Glucose: 89 Surgical History Denies Home Medications Aspirin Atenolol Cranberry extract Finasteride Hydrocort thiazide Lisinopril Naproxen sodium Pumpkin seed extract Rosuvastatin Saw palmetto Terazosin Allergies: Coded Allergies: No Known Drug Allergies (Verified Allergy, Unknown, 03/29/17) Family History Family History Mother passed from heart attack Social History Hx Alcohol Use: NoHx Substance Use: NoHx Tobacco Use: Yes Smoking Status: Unknown if Ever Smoker Living Arrangement: with Family Exam Vital Signs Vital Sign - Last Date Time Temp Pulse Resp B/P Pulse Ox O2 Delivery O2 Flow Rate FiO2 03/31/17 17:18 59 213/81 03/31/17 10:51 Room Air 03/31/17 08:47 36.3 16 95 Intake and Output 03/30/17 03/30/17 03/31/17 Cumulative From/Thru 15:00 23:00 07:00 03/29/17 16:14 - 03/31/17 06:25 Intake Total 230 ml 420 ml 650 ml Output Total 1600 ml 1600 ml Balance -1370 ml 420 ml -950 ml Intake Oral 420 ml 420 ml IV Total 230 ml 230 ml Output Urine Total 1600 ml 1600 ml # Voids 1 1 # Bowel Movements 0 1 1 General: Alert, Oriented X3, Cooperative Head: Normal Eyes: PERRLA, EOMI, Scleral Anicteric Abdomen: Obese Extremities: No cyanosis/clubbing/edma bilat Neurological: Grossly Neurologically Intact, Cranial Nerves 2-12 Intact, Normal Speech, Strength Normal 4/4 ext, Normal Gait, Sensation Intact, Cerebellar Function nl Finger-Nose, Reflexes Normal, Babinski Reflex Normal Lab and Diagnostics Result Diagram: 03/30/17 0420 03/31/17 0235 X-Rays, CTs and MRIs CT BRAIN TPA IMPRESSION: 1. No intracranial hemorrhage. No secondary signs of ischemic infarct. Report called to Dr. Abrams in the ED This study fulfills neurological imaging criteria for inclusion or exclusion of acute stroke therapies based on available published neurological guidelines. Dictated by: Fredi Georges M.D. on 03/29/2017 at 16:37 Assessment & Plan Assessment Servando Maria is an 81-year-old man with past medical history significant for hypertension and hyperlipidemia with prior diagnosis of TIA who presented to [facility] records department 2 days ago due to an episode of aphasia lasting 5-6 minutes. Neurology consultation is being obtained due to recurrent episodes of aphasia. Recurrent expressive aphasia -The patient's stereotyped neurological presentation is suggestive of epilepsy -EEG tomorrow AM -Unlikely to be due to TIAs as with the frequency of episodes the patient would have likely suffered a full stroke at this point. -Patient's MRA from August does show some chronic changes in the internal carotids, right middle cerebral artery, bilateral posterior cerebral arteries although it does not actually specify the percentage was observed. -Patient is close to phobic and refuses to do an MRI/MRA we will obtain a CT angiogram of the brain to evaluate for intracranial stenosis. -Suggest initiating Plavix in addition to continuation of aspirin if however a CT angio shows that the stenosis is less than 50% could consider not continue with Plavix Thank you for allowing us to participate in the care of this patient. Problems: Pain Evaluation: Adequate Pain Control GI Prophylaxis: H2 nick VTE Prophylaxis: Sub-Q Heparin (Unfractionated) VTE Mechanical Devices: Intermittant Pneumatic CD Resuscitation Status: CPR: Attempt Resuscitation Marry Zee DO Mar 31, 2017 18:41
[2017-04-01] MEDS: Heparin 5,000 Unit/mL Inj SUBQ SCH ×2 (00:57→08:31)
[2017-04-01 03:04] VITALS: PULSE 49
[2017-04-01 04:03] VITALS: BP 141/60; PULSE 55; RESP 20; O2SAT 95
[2017-04-01 08:00] VITALS: PULSE 58
[2017-04-01 08:24] VITALS: BP 159/71; PULSE 53; RESP 16; O2SAT 96
[2017-04-01 12:10] VITALS: BP 163/66; PULSE 63; RESP 20; O2SAT 97
[2017-04-01] MEDS ORDERED: ASPI-973 PO (15:15)
[2017-04-01] MEDS ORDERED: AMLO5TAB2 PO (15:15)
--- NOTE | 2017-04-01 15:20 | PCM.DIMED ---
Jose Jaramillo H DO 04/01/17 1520: Discharge Instructions Date of Service Apr 01, 2017 Dates of Hospitalization Mar 29, 2017 at 19:15 Discharge Diagnosis Discharge Diagnosis Hypertensive emergency. Present on admission. resolved TIA. Present on admission. Resolved Hyperlipidemia. Present on admission. Ongoing BPH. Present on admission. Ongoing Medication Instructions Additional med instructions We are giving her 2 medications to help with your TIA. Take Plavix 75 mg 1 tablet daily. Take aspirin 81mg mg daily For your hypertension: Take amlodipine 5mg daily Take lisinopril 20 mg twice daily Additionally, take hydrochlorothiazide 12.5 mg daily STOP taking you atenolol Blood pressure goals Systolic blood pressure 140-160mmHg I have renewed these medications for 2wk. You will need to visit your PCP to continue these medication medication. Continue with all other home medication Diet Discharge Diet: No restrictions Activity Discharge Activity: No restrictions Call your provider Call your provider for: Bleeding, Chest pain, Weakness (unilateral) Patient Instructions Follow-up plan You were admitted for hypertensive emergency. This is means that you have dangerously high blood pressure with signs of organ damage, mainly your headaches and also the word searching, word salad. This was pressure has come down significantly with improvement of her symptoms. Workup on this exam included an echocardiogram which was unremarkable. Interpretation summary of your echocardiogram on 03/30/2017 The left ventricle is normal in size. Left ventricular systolic function is normal without focal wall motion abnormalities. Ejection fraction is estimated to be 60-65%. Diastolic function could not be accurately assessed due to contradictory data. The right ventricle is normal in size, thickness, and function. The right the right ventricular systolic pressure is estimated at 31 mmHg assuming a right atrial pressure of 3 mmHg. The left atrium is moderately dilated. The right atrium is normal in size. There are no significant valvular heart disease. The aortic root is mildly dilated. There is no obvious cardiac sources of embolus noted on this transthoracic echocardiogram. Follow-up with a [facility] is suggested if cardiac source is still suspected. Read by Dr. Felipe Wright. Prevention is cisse. 2 blood thinner medication has been prescribed to you. Aspirin and Plavix. Please take this daily without fail. Additionally, please take atenolol, lisinopril, and hydrochlorothiazide as prescribed above to control your hypertension. Please call your primary care provider to schedule a hospital follow-up exam within 1 week. It is also recommended that you call to make appt with Neurologist Dr. Conroy at [facility] to follow your TIA Call 911 for any of the following: You have any of the following signs of a stroke: Numbness or drooping on one side of your face Weakness in an arm or leg Confusion or difficulty speaking Dizziness, a severe headache, or vision loss Seek care immediately if: You have double vision or vision loss. You have a severe headache or feel dizzy. You are bleeding from your rectum or nose. Contact your healthcare provider or neurologist if: Your blood pressure is higher or lower than you were told it should be. You have questions or concerns about your condition or care. Medicines: Antiplatelets prevent blood clots from forming. Aspirin is an antiplatelet. Do not take aspirin with acetaminophen or ibuprofen. Call you PCP should you have nosebleed or black tarry stools. Know the FAST test to recognize the signs of a stroke: F = Face: Ask the person to smile. Drooping on 1 side of the mouth or face is a sign of a stroke. A = Arms: Ask the person to raise both arms. One arm that slowly comes back down or cannot be raised is a sign of a stroke. S = Speech: Ask the person to repeat a simple sentence that you say first. Speech that is slurred or sounds strange is a sign of a stroke. T = Time: Call 911 if you see any of these signs. This is an emergency. Follow-up with PCP in: 1 week Nii Byrd MD 04/01/17 0616: Discharge Instructions Attending's Statement I interviewed and examined the patient on rounds today. I agree with the plan as stated above. Jose Jaramillo DO Apr 01, 2017 15:20 Nii Byrd MD Apr 01, 2017 18:36
--- NOTE | 2017-04-01 16:20 | DRSVH ---
PROCEDURE: CT ANGIO HEAD AND NECK (P) INDICATIONS: INTRACRANIAL STENOSIS? TECHNIQUE: Pre-contrast 4.5 mm thick sections acquired from the foramen magnum to the vertex. After the adminis tration of intravenous contrast, 1 mm thick sections acquired from the aortic arch through the [place]. Post-contrast 4.5 mm thick sections then re-acquired from the foramen magnum to the vert ex. 3-dimensional veogieg-cxdvmmtop-fpjlfvytsr (MIP) and/or volume rendering reformats were acquired of the central intracranial vasculature and neck separately. For radiation dose reduction, the foll owing was used: automated exposure control, adjustment of mA and/or kV according to patient size. COMPARISON: [facility], CT, CT BRAIN TPA, 03/29/2017, 16:14. FINDINGS: Image quality: Excellent. BRAIN: The ventricular system and cortical sulci demonstrate atrophy, consistent for the patient's stated ag e. There are areas of hypodensity within the periventricular and subcortical white matter. There is no acute intra-or extra axial fluid collection. No acute hemorrhage, mass lesion or midline shift. Br ainstem is unremarkable. Globes are symmetrical. Sinuses are aerated. Osseous structures are intact. HEAD CT ANGIOGRAPHY: The posterior circulation demonstrates a vertebral artery codominance. Basilar artery and posterior c erebral arteries demonstrate no areas of hemodynamically significant stenosis, vascular occlusion or aneurysmal dilation. Posterior communicating arteries are within normal limits. The anterior circulation, including the anterior and middle cerebral arteries demonstrates no areas o f hemodynamically significant stenosis, vascular occlusion or aneurysmal dilation. There is moderate to high-grade stenosis of the left supraclinoid portion of the internal carotid artery. Mild stenosis is present within this portion of the internal carotid artery on the right. NECK CT ANGIOGRAPHY: The origins of the left and right common and external carotid arteries demonstrate no areas of hemody namically significant stenosis, vascular occlusion or aneurysmal dilation. Prominent calcification is noted at the origin of the left internal carotid artery with stenosis measuring approximately 50-60% . A similar, although more prominent appearance is noted on the right with stenosis approaching 60-70 %. Origins of the left vertebral artery demonstrates no areas of hemodynamically significant stenosis , vascular occlusion or aneurysmal dilation. There is calcification identified at the origin of the r ight vertebral artery with at least 60% stenosis. Aortic arch demonstrates bovine anatomy, consistent with congenital variation. Limited, visualized portions subclavian vasculature are unremarkable. Low attenuation focus is present within the left thyroid lobe. No priors are available for comparison . IMPRESSION: 1. No acute intracranial process. 2. Moderate atrophy and chronic microvascular ischemic changes. 3. Anterior circulation demonstrates prominent stenosis of the supraclinoid internal carotid artery, considered moderate to high-grade on the left. 4. Approximate 60% stenosis at the origin of the right vertebral artery is present. 5. Low attenuation focus within the left thyroid lobe without priors available for comparison. Thyroi d ultrasound is recommended for additional evaluation as indicated. Dictated by: Jessica Hay M.D. on 04/01/2017 at 16:01 Approved by: Jessica Hay M.D. on 04/01/2017 at 16:19
--- NOTE | 2017-04-01 17:00 | PROCED ---
[address] [address] EEG PATIENT: PARESH OLIVEROS : 1935 MR#: [id number] ADMIT: 03/29/2017 JOB ID: [id number] DATE OF SERVICE: 04/01/2017 HISTORY: The patient is an 81-year-old man with intermittent episodes of slurred speech and a history of hypertension and hyperlipidemia. TECHNICAL DESCRIPTION: This digital EEG was recorded using 25 scalp and ear, and two EKG electrodes. It was reviewed in bipolar and referential montages following reformatting in the 10-20 [employer] Electrode [employer]acement System. During the recording, the patient was noted to be awake and drowsy. The background was composed of an 8.5-9 hertz, 20-50 microvolt, symmetrical and reactive posterior dominant rhythm that attenuated with eye opening. The rest of the background was composed of low voltage faster frequencies. There was intermittent slowing over the left mid temporal head region, principally T3-T5. No epileptiform activity was noted. There were no focal, lateralized, or epileptiform abnormalities noted. There were no seizures seen. Hyperventilation was not performed. Photic stimulation from 1-30 hertz did not elicit any photic driving response. No sleep was appreciated. The EKG rhythm strip revealed a heart rate of 60-80 beats per minute with no apparent arrhythmias. IMPRESSION: This EEG, performed in the awake and drowsy states, is abnormal. The intermittent slowing over the left temporal head region is suggestive of an underlying focal functional or structural defect. Clinical correlation is advised. ASIAD
[2017-04-01] MEDS ORDERED: LISI-567 PO (17:46)
--- NOTE | 2017-04-01 19:23 | PCM.DC.MED ---
Discharge Summary Date of Service Apr 01, 2017 Dates of Hospitalization Date of Hospital Admission Mar 29, 2017 at 19:15 Date of Discharge: Apr 01, 2017 Providers: Admitting Physician: Jose Parson MD Primary Care Physician: Lilliana Quintero MD Attending Physician: Shola Diego MD Diagnosis at Time of Discharge Diagnosis at Time of Discharge Hypertensive emergency. Present on admission. resolved Aphasia, acute, present on admission. Ongoing TIA. Present on admission. Ongoing Nonacute problems: Hyperlipidemia. Present on admission. Ongoing BPH. Present on admission. Ongoing Consultations Neurology Procedures XRay, CTs & MRIs . CT BRAIN TPA IMPRESSION: 1. No intracranial hemorrhage. No secondary signs of ischemic infarct. This study fulfills neurological imaging criteria for inclusion or exclusion of acute stroke therapies based on available published neurological guidelines. Dictated by: rFedi Georges M.D. on 03/29/2017 X-RAY CHEST ONE VIEW, PORTABLE IMPRESSION: No acute cardiopulmonary abnormality Dictated by: Fredi Georges M.D. on 03/29/2017 PROCEDURE: CT ANGIO HEAD AND NECK (P) INDICATIONS: INTRACRANIAL STENOSIS? IMPRESSION: 1. No acute intracranial process. 2. Moderate atrophy and chronic microvascular ischemic changes. 3. Anterior circulation demonstrates prominent stenosis of the supraclinoid internal carotid artery, considered moderate to high-grade on the left. 4. Approximate 60% stenosis at the origin of the right vertebral artery is present. 5. Low attenuation focus within the left thyroid lobe without priors available for comparison. Thyroid ultrasound is recommended for additional evaluation as indicated. Dictated by: Jessica Hay M.D. on 04/01/2017 at 16:01 ECG 12 Lead MR angiography head: Impression no acute ischemic infarct or other acute intracranial abnormality identified 2. Mildly generalized brain volume loss and small scattered foci of signal abnormality in the cerebral white matter, most consistent with chronic small vessel ischemic changes. 3. Arthrosclerotic irregularities in the intracranial internal carotid arteries , right middle cerebral arteries, and bilateral posterior cerebella arteries are normal in caliber, normal occlusion, or significant stenosis. 4. The may be moderate narrowing of the cervical left ICA, just distal to the carotid bulb. Otherwise normal MR angiography of the neck. Reading DrValery: Scar Bearden. Other Diagnostics NIH stroke scale Level of Consciousness: Alert and responsive (0) Ask Month & Age: Both questions right (0) Open/Close Eyes/Hand Global Chief Experience Officer: Performs both tasks (0) Horizontal EO Movements: None (0) Visual Rosen: No visual loss (0) Facial Palsy: Normal symmetry (0) Right Arm Motor Drift (10s): No drift 10 sec (0) Left Arm Motor Drift (10s): No drift 10 sec (0) Right Leg Motor Drift (5s): No drift 5 sec (0) Left Leg Motor Drift (5s): No drift 5 sec (0) Limb Ataxia FNF/Heel-Mcdonald: No ataxia (0) Sensation (Arms/Legs/Face): No sensory loss (0) Language Aphasia: No aphasia, normal (0) Dysarthria: No dysarthria, normal (0) Extinction/Inattention: No exctinct/inattent (0) NIHSS Score: 0 Brief History Servando Maria is an 81-year-old man with past medical history significant for hypertension and hyperlipidemia with prior diagnosis of TIA who presented to [facility] records department 2 days ago due to an episode of aphasia lasting 5-6 minutes. Neurology consultation is being obtained due to recurrent episodes of aphasia. He states that approximately 25 years ago he had a transient episode of aphasia that lasted about 5 minutes where he had slurring of speech. She had an episode in August where he had again 5-6 minutes of transient aphasia although this was coupled with a tingling sensation over his entire body. This was worked up by an MRA which showed no acute ischemic infarct but did show mild generalized brain volume loss with chronic small vessel ischemic changes as well as atherosclerotic irregularities of the intracranial internal carotid arteries, right middle cerebral artery and bilateral posterior cerebral arteries. He was initiated on aspirin after his first "TIA." On presentation patient was noted to have blood pressure of 241/93 and his symptoms were attributed to hypertensive emergency. His blood pressure was treated however the patient again had 3 recurrent episodes of expressive aphasia lasting 5-6 minutes. Patient denied any tonic-clonic movements, oral, postictal phenomenon. These episodes was witnessed by Dr. Diego who described slurring of the patient's words that resolved shortly. Hospital Course Mr. Maria is a 81-year-old male with past medical history of hyperlipidemia, hypertension and TIA admitted hypertensive emergency with likely stuttering TIA based on CT angiogram. Managed to control blood pressure with a combination of metoprolol, lisinopril augment with hydrochlorothiazide and clonidine. Beta nick were discontinued due to sinus bradycardia. Dual antiplatelet added due to significant for cranial stenosis. Hypertensive emergency. Present on admission. Resolved -Initial presentation with headaches and expressive aphasia -nicardipine drip initiated with good effects and d/c after 12h. BP refractory to labetalol in the ED -Discharged home with SBP 140-160 mmHg -Amlodipine 5 mg daily -Lisinopril 20 mg twice a day -HCTZ 12.5 mg daily -Discontinue atenolol 50 mg qd Expressive aphasia, present on admission, stable -sx lasting <5min, witness by staff 2x, initial CT negative, peculiar, he has no other neurologic findings. Echo unremarkable. patient unable to tolerate MRA -similar presentation back in 08/2016 in [place]. MRA without carotid plaques, unremarkable overall, -possible 2nd to hi BP, arthrosclerotic plaque causing stuttering TIA -Multiple points of stenosis on CT- angiography 03/31/2017 -Neurology consulted and recommended dual antiplatelet therapy -Aspirin 81 mg daily -Plavix 75 mg daily -Establish follow-up with neurology Dr. Conroy Hyperlipidemia. Present on admission. Ongoing -Statin BPH. Present on admission. Ongoing -Continue home meds Exam Vital Signs (Last) Date Time Temp Pulse Resp B/P Pulse Ox O2 Delivery O2 Flow Rate FiO2 04/01/17 12:10 36.3 63 20 163/66 97 Room Air Exam General: No acute distress, appropriately interactive HEENT: Normocephalic, atraumatic. PERRLA, EOMI, Anicteric sclerae, moist conjunctivae. Neck: No JVD, No bruits. No lymphadenopathy or thyromegaly. Cardiovascular: Regular rate and rhythm with no murmurs, rubs, or gallops appreciated Pulmonary: b/l air sound with no crackles, wheezes, or rhonchi. no use of accessory muscles. Abdomen: +Bowel sound, Soft, nontender, nondistended. Extremities: No clubbing or cyanosis, no lymphedema, no b/l lower leg edema Skin: Normal temperature, turgor, and texture; no rash. No visualized skin ulcer. Neurological: CN II-VII grossly intact, moving equally on all 4 extremities, no focal deficits noted Psychiatric: Normal mood and affect. AOx3 Test 03/29/17 16:30 03/29/17 16:31 03/29/17 18:59 03/30/17 04:20 Prothrombin Time 10.1sec (8.1-12.5) Prothromb Time International Ratio 0.95ratio Hemoglobin A1c 5.8% (4.8-5.6) Magnesium Level 2.1mg/dL (1.6-2.6) Troponin T < 0.010ug/L (0.0-0.011) Triglycerides Level 198mg/dL (0-149) Cholesterol Level 153mg/dL (100-199) LDL Cholesterol, Calculated 66.400mg/dL (0-99) VLDL Cholesterol 39.600mg/dL HDL Cholesterol 47mg/dL (>39) Cholesterol/HDL Ratio 3.26 (0.0-4.4) Hold Viveros Top Tube Received (Received) Urine Color Yellow (YELLOW) Urine Appearance Clear (CLEAR,HAZY) Urine pH 7.5 (5.0-8.0) Urine Specific [place] 1.015 (1.003-1.035) Urine Protein Negativemg/dL (NEG,TRACE) Urine Glucose (UA) Negativemg/dL (NEGATIVE) Urine Ketones Negativemg/dL (NEGATIVE) Urine Occult Blood Negative (NEGATIVE) Urine Nitrite Negative (NEGATIVE) Urine Bilirubin Negative (NEGATIVE) Urine Urobilinogen Normalmg/dL (NORMAL) Urine Leukocyte Esterase Trace (NEGATIVE) Urine RBC 0-2/hpf (0-2) Urine WBC 0-5/hpf (0-5) Urine Epithelial Cells Few/hpf (NONE-MOD) Urine Crystals None seen (NONE SEEN) Urine Bacteria Few/hpf (NONE-FEW) Urine Hyaline Casts None/lpf (NONE) Urine Granular Casts None seen (NONE SEEN) Urine Waxy Casts None seen (NONE SEEN) Urine Red Blood Cell Casts None seen (NONE SEEN) Urine White Blood Cell Casts None seen (NONE SEEN) Urine Mucus None seen (None Seen) Urine Trichomonas None seen (NONE SEEN) Urine Yeast None (NONE SEEN) Urinalysis Comment Amorphous sediment Urine Culture Reflexed Indicated White Blood Count 6.5th/mm3 (3.8-10.1) Red Blood Count 4.79mil/mm3 (4.40-5.80) Hemoglobin 14.6g/dL (13.8-17.2) Hematocrit 43.1% (41.0-50.0) Mean Corpuscular Volume 90.0fL (81-100) Mean Corpuscular Hemoglobin 30.5pg (27.0-35.0) Mean Corpuscular Hemoglobin Concent 33.9% (32.0-37.0) Red Cell Distribution Width 13.3% (12.3-15.4) Platelet Count 145bil/L (150-400) Neutrophils (%) (Auto) 67.9% (40-74) Lymphocytes (%) (Auto) 21.1% (14-46) Monocytes (%) (Auto) 9.0% (4-12) Eosinophils (%) (Auto) 1.4% (0-5) Basophils (%) (Auto) 0.3% (0-3) Total Bilirubin 0.7mg/dL (0.0-1.2) Aspartate Amino Transf (AST/SGOT) 14U/L (0-50) Alanine Aminotransferase (ALT/SGPT) 12U/L (0-44) Alkaline Phosphatase 84U/L (25-160) Total Protein 5.8g/dL (6.4-8.4) Albumin 3.9g/dL (3.4-5.0) Test 04/01/17 07:46 Sodium Level 139mEq/L (134-144) Potassium Level 4.3mEq/L (3.5-5.2) Chloride Level 101mEq/L (97-108) Carbon Dioxide Level 24mmol/L (18-29) Blood Urea Nitrogen 23mg/dL (8-27) Creatinine 0.76mg/dL (0.76-1.27) Estimat Glomerular Filtration Rate 105mL/min (>59) Glucose Level 128mg/dL (60-99) Calcium Level 9.1mg/dL (8.5-10.1) Discharge Medications Discharge Medications Amlodipine (Amlodipine) 5 Mg Tablet 5 MG PO DAILY Prescribed by: MIGUEL AVILEZ DO Aspirin (Aspirin) 81 Mg Tablet 81 MG PO DAILY Prescribed by: MIGUEL AVILEZ DO Clopidogrel (Clopidogrel) 75 Mg Tablet 75 MG PO DAILY Prescribed by: MIGUEL AVILEZ DO Cranberry Extract (Cranberry) 500 Mg Tablet 500 MG PO HS (Reported) Finasteride (Finasteride) 5 Mg Tablet 5 MG PO QAM (Reported) Hydrochlorothiazide (Hydrochlorothiazide) 12.5 Mg Tablet 12.5 MG PO QAM Prescribed by: MIGUEL AVILEZ DO Lisinopril (Lisinopril) 20 Mg Tablet 20 MG PO BID Prescribed by: SHOLA DIEGO MD Naproxen Sodium (Naproxen Sodium) 220 Mg Capsule 220 MG PO BIDWM (Reported) Pumpkin Seed Extract/Soy Germ (Azo Bladder Control Capsule) 300 Mg Capsule 300 MG PO HS (Reported) Rosuvastatin Calcium (Rosuvastatin Calcium) 10 Mg Tablet 10 MG PO HS (Reported) Saw Bunnell (Saw Bunnell) 160 Mg Capsule 320 MG PO HS (Reported) Tamsulosin (Flomax) 0.4 Mg Capsule 0.8 MG PO HS (Reported) Additional med instructions We are giving her 2 medications to help with your TIA. Take Plavix 75 mg 1 tablet daily. Take aspirin 81mg mg daily For your hypertension: Take amlodipine 5mg daily Take lisinopril 20 mg twice daily Additionally, take hydrochlorothiazide 12.5 mg daily STOP taking you atenolol Blood pressure goals Systolic blood pressure 140-160mmHg I have renewed these medications for 2wk. You will need to visit your PCP to continue these medication medication. Continue with all other home medication Followup Plan Follow-up plan You were admitted for hypertensive emergency. This is means that you have dangerously high blood pressure with signs of organ damage, mainly your headaches and also the word searching, word salad. This was pressure has come down significantly with improvement of her symptoms. Workup on this exam included an echocardiogram which was unremarkable. Interpretation summary of your echocardiogram on 03/30/2017 The left ventricle is normal in size. Left ventricular systolic function is normal without focal wall motion abnormalities. Ejection fraction is estimated to be 60-65%. Diastolic function could not be accurately assessed due to contradictory data. The right ventricle is normal in size, thickness, and function. The right the right ventricular systolic pressure is estimated at 31 mmHg assuming a right atrial pressure of 3 mmHg. The left atrium is moderately dilated. The right atrium is normal in size. There are no significant valvular heart disease. The aortic root is mildly dilated. There is no obvious cardiac sources of embolus noted on this transthoracic echocardiogram. Follow-up with a [facility] is suggested if cardiac source is still suspected. Read by Dr. Felipe Wright. Prevention is cisse. 2 blood thinner medication has been prescribed to you. Aspirin and Plavix. Please take this daily without fail. Additionally, please take atenolol, lisinopril, and hydrochlorothiazide as prescribed above to control your hypertension. Please call your primary care provider to schedule a hospital follow-up exam within 1 week. It is also recommended that you call to make appt with Neurologist Dr. Conroy at [facility] to follow your TIA Call 911 for any of the following: You have any of the following signs of a stroke: Numbness or drooping on one side of your face Weakness in an arm or leg Confusion or difficulty speaking Dizziness, a severe headache, or vision loss Seek care immediately if: You have double vision or vision loss. You have a severe headache or feel dizzy. You are bleeding from your rectum or nose. Contact your healthcare provider or neurologist if: Your blood pressure is higher or lower than you were told it should be. You have questions or concerns about your condition or care. Medicines: Antiplatelets prevent blood clots from forming. Aspirin is an antiplatelet. Do not take aspirin with acetaminophen or ibuprofen. Call you PCP should you have nosebleed or black tarry stools. Know the FAST test to recognize the signs of a stroke: F = Face: Ask the person to smile. Drooping on 1 side of the mouth or face is a sign of a stroke. A = Arms: Ask the person to raise both arms. One arm that slowly comes back down or cannot be raised is a sign of a stroke. S = Speech: Ask the person to repeat a simple sentence that you say first. Speech that is slurred or sounds strange is a sign of a stroke. T = Time: Call 911 if you see any of these signs. This is an emergency. Discharge Diet: No restrictions Discharge Activity: No restrictions Follow-up with PCP in: 1 week Time spent 45 minutes Attending Statement I interviewed and examined the patient on rounds today. Based on his cerebrovascular disease we have transitioned him off of atenolol, and on to calcium channel blockers, thiazide and SUMAN inhibitor for hypertension control. We appreciate recommendations from Dr. Luis Conroy, who will see the patient in follow-up regarding dual antiplatelet management of stuttering TIA. I agree with the assessment and plan as stated above. copies to: Lilliana Quintero MD; Luis Conroy MD [facility] Apr 01, 2017 19:23 Shola Diego MD Apr 02, 2017 07:11
== END 2017-04-01 18:00 | disposition home or self-care (01) | DRG 305 ==
LOC: SED 16:05 → CCU 19:15 → OBSVTOIN 19:15 → PCC 03-30 07:43
PROVIDERS: ADMIT Hospitalist; ATTEND Internal Medicine
PROC: 4A00X4Z Measurement of Central Nervous Electrical Activity, External Approach (ICD-10-PCS; principal; 2017-04-01)
DX: I16.1 Hypertensive emergency (principal); G45.9 Transient cerebral ischemic attack, unspecified; R47.01 Aphasia; Z79.82 Long term (current) use of aspirin; R29.700 NIHSS score 0; E78.5 Hyperlipidemia, unspecified; N40.0 Benign prostatic hyperplasia without lower urinary tract symptoms